=== PATIENT | male | born 1970 | race Caucasian/White ===

== ENCOUNTER 2021-04-09 18:27 | Emergency (ER) | payer MEDICAID ==
[~2021-04-09] VITALS: Ht 175.3 cm; Wt 77.1 kg
[2021-04-09 19:05] VITALS: BP 109/69
--- NOTE | 2021-04-09 19:13 | NUR ---
Pt to lobby with steady/even gait, waiting for open bed. GELY Quarles made aware of patient condition.
--- NOTE | 2021-04-09 19:50 | NUR ---
SEEN AND EXAMINED BY GELY ROBERTSON WITH ORDERS.
[2021-04-09] MEDS ORDERED: NAPR-54 PO (19:55)
[2021-04-09] MEDS ORDERED: CEPH500C16 PO (19:55)
[2021-04-09 20:22] VITALS: BP 109/69
--- NOTE | 2021-04-09 20:22 | NUR ---
Patient discharged with v/s stable. Written and verbal after care instructions given and explained. Patient alert, oriented and verbalized understanding of instructions. Ambulatory with steady gait. All questions addressed prior to discharge. ID band removed. Patient advised to follow up with PMD. Rx of KEFLEX, NAPROSYN given. Patient educated on indication of medication including possible reaction and side effects. Opportunity to ask questions provided and answered.
== END 2021-04-09 20:22 | disposition home or self-care (01) ==
LOC: MED 18:27
DX: L02.31 Cutaneous abscess of buttock (principal); Z79.899 Other long term (current) drug therapy
CPT/HCPCS: 99283

== ENCOUNTER 2021-12-26 15:29 | Emergency (ER) | payer MEDICAID ==
[~2021-12-26] VITALS: Ht 175.3 cm; Wt 77.1 kg
[~2021-12-26 15:29] MED LIST: CEPH500C16 PO; NAPR-54 PO
[2021-12-26 15:33] VITALS: BP 154/88
[2021-12-26] MEDS: KETOROLAC 30 MG/ML VIAL IM ONE (16:13)
[2021-12-26] MEDS ORDERED: NAPR-54 PO (16:53)
[2021-12-26 17:09] VITALS: BP 154/88
== END 2021-12-26 17:09 | disposition home or self-care (01) ==
LOC: MED 15:29
DX: R10.9 Unspecified abdominal pain (principal); M79.10 Myalgia, unspecified site
CPT/HCPCS: 74018; 96372; 99283; J1885

== ENCOUNTER 2022-08-15 03:39 | Emergency (ER) | payer MEDICAID ==
[~2022-08-15] VITALS: Ht 175.3 cm; Wt 77.1 kg
[2022-08-15 03:50] VITALS: BP 130/70
--- NOTE | 2022-08-15 03:50 | NUR ---
to bed ambulatory
--- NOTE | 2022-08-15 04:00 | NUR ---
seen and examined by ZACK
[2022-08-15] MEDS ORDERED: IBUPROFEN 800 MG TAB PO ONE (04:15)
[2022-08-15] MEDS ORDERED: cefTRIAXone 500 MG in LIDOCAINE MPF 1% 1 ML IM ONE (04:15)
--- NOTE | 2022-08-15 04:15 | NUR ---
medicated as per [facility] order, tolerated well.
[2022-08-15] MEDS ORDERED: DOXY-690 PO (04:16)
[2022-08-15] MEDS ORDERED: IBUP-2213 PO (04:16)
[2022-08-15] MEDS ORDERED: VALA1TAB40 PO (04:19)
[2022-08-15] MEDS ORDERED: DOXYCYCLINE 100 MG CAP PO SCH (04:20)
[2022-08-15] MEDS ORDERED: cefTRIAXone 500 MG VIAL ONE (04:24)
[2022-08-15] MEDS ORDERED: LIDOCAINE MPF 1% 5 ML ONE (04:28)
[2022-08-15 04:40] VITALS: BP 130/70
--- NOTE | 2022-08-15 04:40 | NUR ---
Patient discharged with v/s stable. Written and verbal after care instructions given and explained. Patient alert, oriented and verbalized understanding of instructions. Ambulatory with steady gait. All questions addressed prior to discharge. ID band removed. Patient advised to follow up with PMD. Rx of vibramycin, motrin, valcyclovir given. Patient educated on indication of medication including possible reaction and side effects. Opportunity to ask questions provided and answered.
== END 2022-08-15 04:40 | disposition home or self-care (01) ==
LOC: MED 03:39
DX: A60.01 Herpesviral infection of penis (principal)
CPT/HCPCS: 87491; 96372; 99283; J0696; J2001